=== PATIENT | male | born 1940 | race Caucasian/White ===

== ENCOUNTER → 2023-07-03 14:02 | Outpatient (REF) | payer MEDICARE, BC, SELFPAY | LOC: DHCBC HW 14:02 | PROVIDERS: ATTENDING PHYSICIAN Internal Medicine Cardiovascular Disease; FAMILY PHYSICIAN Nurse Practitioner Family | DX: I42.9 Cardiomyopathy, unspecified (principal) | CPT/HCPCS: 93306 ==

== ENCOUNTER → 2023-07-23 08:45 | Outpatient (REF) | payer MEDICARE, BC, SELFPAY ==
[2023-07-23 12:55] LABS: ALT (SGPT) 33 U/L (0-50); AST (SGOT) 47 U/L (17-59); Albumin 3.5 g/dl (3.5-5.0); Alkaline Phosphatase 147 U/L (38-126); Blood Urea Nitrogen 26 mg/dl (9-20); Carbon Dioxide 29 mmol/L (22-30); Chloride 104 mmol/L (98-107); Glucose 83 mg/dl (70-99); HDL Cholesterol 31 mg/dl; Iron 61 ug/dl (49-181); LDL Cholesterol, Calculated 35 mg/dl; Potassium 3.6 mmol/L (3.5-5.1); Sodium 138 mmol/L (135-145); Total Bilirubin 1.4 mg/dl (0.2-1.3); Total Cholesterol 76 mg/dl (50-199); Total Protein 6.1 g/dl (6.3-8.2); Triglyceride 54 mg/dl (10-149); Uric Acid 7.7 mg/dl (3.5-8.5); Very Low Density Lipoprotein 10 mg/dl (0-30); eGFR 49.25
[2023-07-23 13:18] LABS: TSH Reflex To Free T4 3.36 uIU/ml (0.47-4.68)
[2023-07-23 13:35] LABS: % Basophils 0.6 % (0-2); % Eosinophils 5.1 % (0-6); % Immature Granulocytes 0.4 % (0-0.5); % Lymphocytes 11.5 % (20.5-51.1); % Monocytes 8.8 % (1.7-9.3); % Neutrophils 73.6 % (42.2-75.2); Absolute Eosinophils 0.2 10^3/uL (0-0.7); Absolute Lymphocytes 0.5 10^3/uL (1.2-3.4); Absolute Monocytes 0.4 10^3/uL (0.1-0.6); Absolute Neutrophils 3.4 10^3/uL (1.4-6.5); Hematocrit 30.6 % (39.0-52.0); Hemoglobin 10.1 g/dL (13.0-18.0); Mean Corpuscular Volume 96.8 fL (80.0-94.0); Mean Platelet Volume 11.4 fL (7.4-10.4); Nucleated Red Blood Cells % 0 % (-); Platelet Count 78 10^3/uL (130-400); Red Blood Cell Count 3.16 10^6/uL (4.70-6.10); Red Cell Dist. Width 14.3 % (11.5-14.5); White Blood Cell Count 4.7 10^3/uL (4.8-10.8)
== END ==
LOC: HWLAB 08:45
PROVIDERS: ATTENDING PHYSICIAN Nurse Practitioner Family
DX: M10.9 Gout, unspecified (principal); I10 Essential (primary) hypertension; K22.70 Barrett's esophagus without dysplasia; K90.0 Celiac disease; E04.2 Nontoxic multinodular goiter; E78.2 Mixed hyperlipidemia; D69.6 Thrombocytopenia, unspecified; Z13.31 Encounter for screening for depression; K59.00 Constipation, unspecified; R91.1 Solitary pulmonary nodule; N18.32 Chronic kidney disease, stage 3b
CPT/HCPCS: 36415; 80053; 80061; 82728; 83540; 84443; 84550; 85025

== ENCOUNTER → 2023-09-28 09:06 | Outpatient (REF) | payer MEDICARE, BC, SELFPAY ==
[2023-09-28 12:52] LABS: Urine Albumin Trace (Neg - Trace); Urine Bilirubin Negative (Negative); Urine Character Clear (Clear); Urine Color Yellow; Urine Glucose Negative (Negative); Urine Ketone Negative (Negative); Urine Leukocyte Negative (Negative); Urine Nitrite Negative (Negative); Urine Occult Blood 1+ (Negative); Urine Urobilinogen Negative (Neg - 1+)
[2023-09-28 13:02] LABS: % Basophils 0.4 % (0-2); % Eosinophils 5.2 % (0-6); % Lymphocytes 13.8 % (20.5-51.1); % Monocytes 7.5 % (1.7-9.3); % Neutrophils 73.1 % (42.2-75.2); Absolute Eosinophils 0.3 10^3/uL (0-0.7); Absolute Lymphocytes 0.7 10^3/uL (1.2-3.4); Absolute Monocytes 0.4 10^3/uL (0.1-0.6); Absolute Neutrophils 3.5 10^3/uL (1.4-6.5); Hematocrit 33.3 % (39.0-52.0); Mean Corpuscular Hgb 31.4 pg (27.0-31.0); Mean Corpuscular Volume 95.1 fL (80.0-94.0); Mean Platelet Volume 11.5 fL (7.4-10.4); Nucleated Red Blood Cells % 0 % (-); Platelet Count 55 10^3/uL (130-400); Red Cell Dist. Width 14.3 % (11.5-14.5); White Blood Cell Count 4.8 10^3/uL (4.8-10.8)
[2023-09-28 13:05] LABS: Albumin 3.7 g/dl (3.5-5.0); Blood Urea Nitrogen 25 mg/dl (9-20); Calcium 9.4 mg/dl (8.4-10.2); Carbon Dioxide 30 mmol/L (22-30); Chloride 104 mmol/L (98-107); Glucose 86 mg/dl (70-99); Iron 77 ug/dl (49-181); Phosphorus 2.7 mg/dl (2.5-4.5); Potassium 3.7 mmol/L (3.5-5.1); Sodium 141 mmol/L (135-145); eGFR 59.26
[2023-09-28 13:14] LABS: Percent Saturation 25 % (20-50); Total Iron Binding Capacity 304 ug/dl (261-462)
[2023-09-28 13:19] LABS: Complement C3 93 mg/dl (88-165)
[2023-09-28 13:33] LABS: Urine Urothelial Cell 0-2 /LPF (FEW)
[2023-09-28 13:34] LABS: Urine White Cell 0-2 /HPF (0-5)
== END ==
LOC: HWLAB 09:06
PROVIDERS: ATTENDING PHYSICIAN Internal Medicine; FAMILY PHYSICIAN Nurse Practitioner Family
DX: N17.9 Acute kidney failure, unspecified (principal); D64.9 Anemia, unspecified
CPT/HCPCS: 36415; 80069; 81003; 81015; 82728; 83516; 83540; 83550; 85025; 86038; 86160

== ENCOUNTER → 2023-10-19 13:08 | Outpatient (REF) | payer MEDICARE, BC, SELFPAY ==
[2023-10-19 17:07] LABS: Albumin 3.6 g/dl (3.5-5.0); Blood Urea Nitrogen 29 mg/dl (9-20); Calcium 9.4 mg/dl (8.4-10.2); Carbon Dioxide 31 mmol/L (22-30); Chloride 104 mmol/L (98-107); Glucose 151 mg/dl (70-99); Potassium 3.5 mmol/L (3.5-5.1); Sodium 142 mmol/L (135-145); eGFR 59.26
[2023-10-19 17:23] LABS: Vitamin D, 25-OH*** 58.2 ng/mL (30-80)
== END ==
LOC: HWLAB 13:08
PROVIDERS: ATTENDING PHYSICIAN Internal Medicine; FAMILY PHYSICIAN Nurse Practitioner Family
DX: N18.32 Chronic kidney disease, stage 3b (principal); E83.52 Hypercalcemia
CPT/HCPCS: 36415; 80069; 82306; 83970

== ENCOUNTER → 2023-11-03 15:32 | Outpatient (REF) | payer MEDICARE, BC, SELFPAY | LOC: HWRAD 15:32 | PROVIDERS: ATTENDING PHYSICIAN Internal Medicine | DX: M79.604 Pain in right leg (principal); W19.XXXA Unspecified fall, initial encounter | CPT/HCPCS: 73552 ==

== ENCOUNTER → 2023-11-16 15:15 | Outpatient (REF) | payer MEDICARE, BC, SELFPAY | LOC: HWRAD 15:15 | PROVIDERS: ATTENDING PHYSICIAN Nurse Practitioner Family | DX: M79.604 Pain in right leg (principal) | CPT/HCPCS: 73502; 73552; 73564; 73590; 73610 ==

== ENCOUNTER → 2024-01-29 09:20 | Outpatient (REF) | payer MEDICARE, BC, SELFPAY ==
[2024-01-29 12:26] LABS: % Basophils 0.8 % (0-2); % Eosinophils 5.3 % (0-6); % Immature Granulocytes 0.3 % (0-0.5); % Lymphocytes 13.8 % (20.5-51.1); % Neutrophils 71.8 % (42.2-75.2); Absolute Eosinophils 0.2 10^3/uL (0-0.7); Absolute Lymphocytes 0.6 10^3/uL (1.2-3.4); Absolute Monocytes 0.3 10^3/uL (0.1-0.6); Absolute Neutrophils 2.9 10^3/uL (1.4-6.5); Hematocrit 31.9 % (39.0-52.0); Hemoglobin 10.5 g/dL (13.0-18.0); Mean Corp Hgb Conc. 32.9 g/dL (33.0-37.0); Mean Corpuscular Hgb 30.8 pg (27.0-31.0); Mean Corpuscular Volume 93.5 fL (80.0-94.0); Mean Platelet Volume 11.7 fL (7.4-10.4); Nucleated Red Blood Cells % 0 % (-); Platelet Count 61 10^3/uL (130-400); Red Blood Cell Count 3.41 10^6/uL (4.70-6.10); Red Cell Dist. Width 14.5 % (11.5-14.5)
[2024-01-29 12:33] LABS: ALT (SGPT) 41 U/L (0-50); AST (SGOT) 55 U/L (17-59); Albumin 3.6 g/dl (3.5-5.0); Alkaline Phosphatase 129 U/L (38-126); Blood Urea Nitrogen 36 mg/dl (9-20); Calcium 9.2 mg/dl (8.4-10.2); Carbon Dioxide 25 mmol/L (22-30); Chloride 105 mmol/L (98-107); Glucose 93 mg/dl (70-99); HDL Cholesterol 32 mg/dl; Iron 59 ug/dl (49-181); LDL Cholesterol, Calculated 35 mg/dl; Potassium 4.1 mmol/L (3.5-5.1); Sodium 144 mmol/L (135-145); Total Cholesterol 77 mg/dl (50-199); Total Protein 6.1 g/dl (6.3-8.2); Triglyceride 54 mg/dl (10-149); Very Low Density Lipoprotein 10 mg/dl (0-30); eGFR 45.34
[2024-01-29 12:42] LABS: Percent Saturation 21 % (20-50); Total Iron Binding Capacity 278 ug/dl (261-462)
[2024-01-29 13:07] LABS: TSH Reflex To Free T4 2.54 uIU/ml (0.47-4.68)
[2024-01-29 16:08] LABS: Microalbumin, Random Urine > 57.0 mg/dl (0.6-1.7)
[2024-01-31 02:28] LABS: Endomysial IgA Antibody Titer <1:10 (<1:10)
== END ==
LOC: HWLAB 09:20
PROVIDERS: ATTENDING PHYSICIAN Nurse Practitioner; FAMILY PHYSICIAN Nurse Practitioner Family
DX: M79.604 Pain in right leg (principal); Z13.31 Encounter for screening for depression; I10 Essential (primary) hypertension; M10.9 Gout, unspecified; K22.70 Barrett's esophagus without dysplasia; K90.0 Celiac disease; E04.2 Nontoxic multinodular goiter; E78.2 Mixed hyperlipidemia; D69.6 Thrombocytopenia, unspecified; K59.00 Constipation, unspecified; I50.9 Heart failure, unspecified; C43.9 Malignant melanoma of skin, unspecified; I48.91 Unspecified atrial fibrillation; M54.50 Low back pain, unspecified; D50.9 Iron deficiency anemia, unspecified; Z91.81 History of falling; I71.40 Abdominal aortic aneurysm, without rupture, unspecified; R91.1 Solitary pulmonary nodule; I71.20 Thoracic aortic aneurysm, without rupture, unspecified; N18.32 Chronic kidney disease, stage 3b; M25.561 Pain in right knee; M25.562 Pain in left knee
CPT/HCPCS: 36415; 80053; 80061; 82043; 82570; 82728; 82784; 83516; 83540; 83550; 84443; 85025; 86231

== ENCOUNTER → 2024-02-25 09:54 | Outpatient (REF) | payer MEDICARE, BC, SELFPAY ==
[2024-02-25 12:31] LABS: Direct Bilirubin 0.3 mg/dl (0.0-0.4); Total Bilirubin 1.2 mg/dl (0.2-1.3)
[2024-02-25 12:34] LABS: % Basophils 0.6 % (0-2); % Eosinophils 5.3 % (0-6); % Immature Granulocytes 0.4 % (0-0.5); % Lymphocytes 12.5 % (20.5-51.1); % Monocytes 8.7 % (1.7-9.3); % Neutrophils 72.5 % (42.2-75.2); Absolute Eosinophils 0.3 10^3/uL (0-0.7); Absolute Lymphocytes 0.7 10^3/uL (1.2-3.4); Absolute Monocytes 0.5 10^3/uL (0.1-0.6); Absolute Neutrophils 3.9 10^3/uL (1.4-6.5); Hematocrit 33.5 % (39.0-52.0); Hemoglobin 11.5 g/dL (13.0-18.0); Mean Corp Hgb Conc. 34.3 g/dL (33.0-37.0); Mean Corpuscular Hgb 32.2 pg (27.0-31.0); Mean Corpuscular Volume 93.8 fL (80.0-94.0); Nucleated Red Blood Cells % 0 % (-); Platelet Count 67 10^3/uL (130-400); Red Blood Cell Count 3.57 10^6/uL (4.70-6.10); Red Cell Dist. Width 14.1 % (11.5-14.5); White Blood Cell Count 5.4 10^3/uL (4.8-10.8)
== END ==
LOC: HWLAB 09:54
PROVIDERS: ATTENDING PHYSICIAN Nurse Practitioner Family
DX: E80.6 Other disorders of bilirubin metabolism (principal); D69.6 Thrombocytopenia, unspecified
CPT/HCPCS: 36415; 82247; 82248; 85025

== ENCOUNTER → 2024-03-11 10:17 | Outpatient (REF) | payer MEDICARE, BC, SELFPAY ==
[2024-03-11 12:29] LABS: Urine Protein 70 mg/dl (0-12)
[2024-03-11 12:30] LABS: % Eosinophils 6.5 % (0-6); % Immature Granulocytes 0.2 % (0-0.5); % Monocytes 8.1 % (1.7-9.3); % Neutrophils 71.2 % (42.2-75.2); Absolute Basophils 0.1 10^3/uL (0-0.2); Absolute Eosinophils 0.3 10^3/uL (0-0.7); Absolute Lymphocytes 0.7 10^3/uL (1.2-3.4); Absolute Monocytes 0.4 10^3/uL (0.1-0.6); Absolute Neutrophils 3.6 10^3/uL (1.4-6.5); Hematocrit 33.7 % (39.0-52.0); Hemoglobin 11.2 g/dL (13.0-18.0); Mean Corp Hgb Conc. 33.2 g/dL (33.0-37.0); Mean Corpuscular Hgb 31.2 pg (27.0-31.0); Mean Corpuscular Volume 93.9 fL (80.0-94.0); Mean Platelet Volume 11.4 fL (7.4-10.4); Nucleated Red Blood Cells % 0 % (-); Platelet Count 62 10^3/uL (130-400); Red Blood Cell Count 3.59 10^6/uL (4.70-6.10); Red Cell Dist. Width 14.3 % (11.5-14.5); White Blood Cell Count 5.1 10^3/uL (4.8-10.8)
[2024-03-11 12:38] LABS: Albumin 3.8 g/dl (3.5-5.0); Blood Urea Nitrogen 35 mg/dl (9-20); Calcium 9.3 mg/dl (8.4-10.2); Carbon Dioxide 29 mmol/L (22-30); Chloride 104 mmol/L (98-107); Glucose 78 mg/dl (70-99); Sodium 143 mmol/L (135-145); eGFR 45.34
== END ==
LOC: HWLAB 10:17
PROVIDERS: ATTENDING PHYSICIAN Internal Medicine; FAMILY PHYSICIAN Nurse Practitioner Family
DX: I10 Essential (primary) hypertension (principal); N18.32 Chronic kidney disease, stage 3b; D64.9 Anemia, unspecified; I50.32 Chronic diastolic (congestive) heart failure
CPT/HCPCS: 36415; 80069; 82570; 84156; 85025

== ENCOUNTER → 2024-03-15 09:09 | Outpatient (REF) | payer MEDICARE, BC, SELFPAY ==
[2024-03-15 09:36] VITALS: BP 152/79; BP_SYST 58
[2024-03-15 09:56] LABS: INR 2.69; PT 28.5 Sec (11.4-14.6)
[2024-03-15 10:03] LABS: % Basophils 0.5 % (0-2); % Eosinophils 5.5 % (0-6); % Immature Granulocytes 0.2 % (0-0.5); % Lymphocytes 11.6 % (20.5-51.1); % Monocytes 8.1 % (1.7-9.3); % Neutrophils 74.1 % (42.2-75.2); Absolute Eosinophils 0.3 10^3/uL (0-0.7); Absolute Lymphocytes 0.7 10^3/uL (1.2-3.4); Absolute Monocytes 0.5 10^3/uL (0.1-0.6); Absolute Neutrophils 4.2 10^3/uL (1.4-6.5); Hematocrit 32.8 % (39.0-52.0); Mean Corp Hgb Conc. 33.5 g/dL (33.0-37.0); Mean Corpuscular Hgb 30.6 pg (27.0-31.0); Mean Corpuscular Volume 91.4 fL (80.0-94.0); Mean Platelet Volume 11.5 fL (7.4-10.4); Nucleated Red Blood Cells % 0 % (-); Platelet Count 69 10^3/uL (130-400); Red Blood Cell Count 3.59 10^6/uL (4.70-6.10); Red Cell Dist. Width 14.3 % (11.5-14.5); White Blood Cell Count 5.7 10^3/uL (4.8-10.8)
[2024-03-15] MEDS: ATIVAN 0.5 MG IV (10:42)
[2024-03-15] MEDS: NSS (PRESERVATIVE FREE) 0.25 ML IV (10:42)
[2024-03-15 11:35] VITALS: BP 157/80
[2024-03-15 11:41] VITALS: BP 157/80; BP_SYST 68
[2024-03-15 11:45] VITALS: BP 126/69
[2024-03-15 11:50] VITALS: BP 149/72
[2024-03-15 11:55] VITALS: BP 146/89
== END ==
LOC: RADI 09:09
PROVIDERS: ATTENDING PHYSICIAN Nurse Practitioner Primary Care; FAMILY PHYSICIAN Nurse Practitioner Family
DX: D69.6 Thrombocytopenia, unspecified (principal); D64.9 Anemia, unspecified
CPT/HCPCS: 88305; 88311; 88312; 36415; 38222; 77012; 85025; 85610; 88313

== ENCOUNTER 2024-03-25 06:37 | Emergency (ER) | payer MEDICARE, BC, SELFPAY ==
[2024-03-25 06:40] VITALS: BP 157/80; BMI 26.2
[2024-03-25 07:00] VITALS: BP 157/73
--- NOTE | 2024-03-25 07:25 | ED.GENMED ---
History of Present Illness
General
Chief Complaint: Wound Check/Suture Removal
Source: patient and spouse
Time Seen by Provider: 03/25/24 07:04
History of Present Illness
History of Present Illness:
83-year-old male with past medical history of atrial fibrillation, CHF, hypertension, hyperlipidemia, previous AAA status postrepair, chronic kidney disease presenting to the ER for evaluation after he is about 10 days post bone marrow biopsy, awoke
earlier this morning stating he felt wet and thought he had urinated himself but noticed a large pool of blood on his bed and continuous oozing from the biopsy site. Patient states that 2 days following the biopsy he would have dried blood on his
bandage when checking in for the last few days he has not had any drainage on his bandages. Patient takes Coumadin daily for his atrial fibrillation and states last INR a few days ago was 2.6. Denies any fevers, chest pain, shortness of breath,
exertional dyspnea, fatigue or weakness or any other symptoms. He does state that he has mild pain/discomfort around the biopsy site since his procedure.
Past History
Past History
ED Past Medical History: Arrthythmia, CHF, HTN, Hypercholesterolemia, Renal failure, Other (celiac, barretts esophagus) and Other (AAA)
ED Past Surgical History: Orthopedic and Other
Social History
Tobacco: Non-smoker
Alcohol: None
Drug: None
Personal:
Living: with family
Review of Systems
Review of Systems
All Other Systems: ROS reviewed and negative except as documented in HPI and ROS
Phy Exam
Physical Exam
Physical Exam:
GENERAL: Alert , in no apparent distress
EYE: conjunctiva clear
NECK: Supple
ENT: mmm.
CARDIAC: Regular rate and rhythm
LUNGS: Clear breath sounds bilaterally, no acute respiratory distress, no wheezes/rales/rhonchi
NEUROLOGICAL: Alert and oriented
SKIN: Warm and dry, biopsy site noted at the lumbosacral region, midline, dressing overlying saturated with blood, dressing removed and continuous oozing noted from the biopsy site. Inferior to the biopsy site is a small hematoma. No surrounding
erythema, no purulence
MUSCULOSKELETAL: well perfused.
PSYCH: Normal and appropriate interaction.
Scores
Heart Failure Risk
Heart Failure Risk Score: Not Applicable
Heart Score for Chest Pain Patients
STEMI patient?: Not applicable
Withdrawal Assessment of Alcohol
Withdrawal Assessment Completed?: Not applicable
Course
Orders/Labs/Results
Orders:
Orders
03/25/24 07:15
Type+Screen Urgent
Basic Metabolic Panel Urgent
Complete Blood Count/With Diff Urgent
PTT Urgent
Prothrombin Time Urgent
03/25/24 08:06
ABO2 Urgent
BBK Wristband Number:
Associate notified that ABO2 has been ordered: [id number]
Date: 03/25/24
Time: 07:33
Manager Etl ID: [id number]
Abnormal Lab Results
03/25/24
07:15
RBC 3.55 L 10^6/uL
(4.70-6.10)
Hgb 11.2 L g/dL
(13.0-18.0)
Hct 34.1 L %
(39.0-52.0)
MCV 96.1 H fL
(80.0-94.0)
MCH 31.5 H pg
(27.0-31.0)
MCHC 32.8 L g/dL
(33.0-37.0)
RDW 14.6 H %
(11.5-14.5)
Plt Count 78 L 10^3/uL
(130-400)
MPV 11.3 H fL
(7.4-10.4)
Absolute Lymphs (auto) 0.6 L 10^3/uL
(1.2-3.4)
Neutrophils % 75.9 H %
(42.2-75.2)
Lymphocytes % 9.8 L %
(20.5-51.1)
PT 29.0 H Sec
(11.4-14.6)
APTT 49.4 H Sec
(23.4-35.0)
Carbon Dioxide 31 H mmol/L
(22-30)
BUN 34 H mg/dl
(9-20)
Creatinine 1.5 H mg/dL
(0.7-1.3)
Glucose 100 H mg/dl
(70-99)
03/25/24 07:15
03/25/24 07:15
Vital Signs
Initial and Last Documented VS:
Initial Vital Signs
Temp Pulse Resp BP Pulse Ox
97.6 F 63 16 157/80 96
03/25/24 06:40 03/25/24 06:40 03/25/24 06:40 03/25/24 06:40 03/25/24 06:40
Last Documented Vital Signs
Temp Pulse Resp BP Pulse Ox
97.6 F 74 15 148/56 95
03/25/24 06:40 03/25/24 08:30 03/25/24 08:30 03/25/24 08:00 03/25/24 08:30
MDM/Problems Addressed
Differential Diagnosis Includes:
Postprocedural bleeding, hematoma, seroma, no symptoms to suggest infectious etiology, supratherapeutic INR, anemia, thrombocytopenia
MDM/Problems Addressed:
83-year-old male presenting to the ER for evaluation of bleeding through his dressings from bone marrow biopsy done little over 1 week ago. Patient is on Coumadin for his chronic medical conditions. Last INR 2.6 just a few days ago. No other
physical concerns. Patient's old dressing was removed. I placed Gelfoam with a nonadherent gauze pad over top and 4 x 4's to create a pressure dressing. Ice pack applied to the area and patient applying direct pressure. Will check labs including
INR. Will recheck wound once labs resulted to ensure no further bleeding/oozing. Disposition pending.
Chronic conditions affecting care: Other (Anticoagulated secondary to atrial fibrillation)
*Pulse Oximetry
Patient hypoxic: no
*Critical Care Note
Total Time (30-74mins, 75-104mins- exclusive of procedures): Not Applicable
Data Reviewed
Review of Other/Old Records Reveals: Labs and Records
Source: patient, records and spouse
Patient Management
Social determinants of health affecting care: Living situation and Strong social support
Escalation/DeEscalation of care consider admission/obs:
Patient's lab work reassuring with a hemoglobin of 11.2 and platelets actually increased to 78 today. INR 2.7. Known mild chronic kidney disease. On reevaluation patient's dressing remains dry and without any further evidence for bleeding.
Stable for discharge home. Family advised on wound care. They are aware of return precautions. Follow-up as they have scheduled
ED Attending Note
-
Portions of this chart may have been created with voice recognition software.� Occasional wrong word or��sound alike� substitutions may have occurred due to the inherent limitations of voice recognition software.
Discharge Plan
Departure
Patient Disposition: Home (Routine Discharge)
Date of Disposition: 03/25/24
Time of Disposition: 08:27
Patient with high blood pressure during this ER visit?: Yes
Discharge Problem:
Hemorrhage postprocedure, Thrombocytopenia
Instructions: Wound Care (DC)
Prescriptions:
No Action
metoprolol tartrate 100 MG tablet
50 mg PO BID
pantoprazole 40 MG tablet,delayed release (DR/EC)
40 mg PO DAILY
warfarin [Jantoven] 5 MG tablet
3 mg PO DAILY
Rx Instructions:
use as directed
docosahexaenoic acid-epa 1 CAP capsule
1 cap PO DAILY
calcium carbonate-vitamin D3 1 EACH tablet
1 ea PO BID
aspirin 81 MG tablet,chewable
81 mg PO QPM
High Potency Probiotic 1 CAP capsule
1 cap PO DAILY
multivitamin with folic acid [Tab-A-Wiley] 1 TABLET tablet
1 tab PO DAILY
vitamin B complex Tablet
1 tab PO QPM
magnesium 250 mg Tablet
250 mg PO QPM
atorvastatin [Lipitor] 40 mg Tablet
40 mg PO DAILY
cilostazol 100 mg Tablet
100 mg PO BID
bumetanide [Bumex] 2 mg Tablet
2 mg PO DAILY
amlodipine [Norvasc] 2.5 mg Tablet
2.5 mg PO DAILY
folic acid 1 mg Tablet
1 mg PO DAILY
solifenacin [Vesicare] 5 mg Tablet
5 mg PO DAILY
potassium chloride 20 mEq Tablet Extended Release
20 meq PO DAILY
polyethylene glycol 3350 [Miralax] 17 gram Powder In Packet
17 g PO DAILY PRN (Reason: constipation)
docusate sodium [Colace] 100 mg Capsule
100 mg PO DAILY PRN (Reason: constipation)
Referrals:
Markie Contreras CRNP [Family Provider] -
Interventions
Interventions:
*Risk Screen - Suicide Last Done: 03/25/24 06:40
*General Assessment Last Done: 03/25/24 06:40
*Neglect/Abuse Screening Last Done: 03/25/24 06:40
ED- Fall Risk Assessment Last Done: 03/25/24 06:55
*ED COVID-19 Vaccine History Last Done: 03/25/24 06:49
*Nursing Disposition Last Done: 03/25/24 08:40
ED-Skin Assessment Last Done: 03/25/24 06:49
Discharge Date and Time
Discharge Date/Time: 03/25/24 08:41
Print Language: CAMEROONIAN
--- NOTE | 2024-03-25 07:29 | EDRN ---
Mo MEJIA was at the pts bedside assessing the pts sacral/buttock area, the provider placed a pressure dressing on the pts sacral area, ice was put in place under the sacrum and the pt is laying on his left side and slightly tilted back,
the pt states that he is comfortable, VS WNL, labs drawn and sent, will continue to monitor the pt closely
[2024-03-25 07:50] LABS: INR 2.74
[2024-03-25 07:51] LABS: APTT 49.4 Sec (23.4-35.0)
[2024-03-25 07:54] LABS: Blood Urea Nitrogen 34 mg/dl (9-20); Calcium 9.5 mg/dl (8.4-10.2); Carbon Dioxide 31 mmol/L (22-30); Chloride 102 mmol/L (98-107); Estimated Creatinine Clearance 40 ml/min; Glucose 100 mg/dl (70-99); Potassium 3.8 mmol/L (3.5-5.1); Sodium 143 mmol/L (135-145); eGFR 45.34
[2024-03-25 08:00] VITALS: BP 148/56
[2024-03-25 08:30] LABS: % Basophils 0.5 % (0-2); % Eosinophils 5.2 % (0-6); % Immature Granulocytes 0.5 % (0-0.5); % Lymphocytes 9.8 % (20.5-51.1); % Monocytes 8.1 % (1.7-9.3); % Neutrophils 75.9 % (42.2-75.2); Absolute Eosinophils 0.3 10^3/uL (0-0.7); Absolute Lymphocytes 0.6 10^3/uL (1.2-3.4); Absolute Monocytes 0.5 10^3/uL (0.1-0.6); Absolute Neutrophils 4.7 10^3/uL (1.4-6.5); Hematocrit 34.1 % (39.0-52.0); Hemoglobin 11.2 g/dL (13.0-18.0); Mean Corp Hgb Conc. 32.8 g/dL (33.0-37.0); Mean Corpuscular Hgb 31.5 pg (27.0-31.0); Mean Corpuscular Volume 96.1 fL (80.0-94.0); Mean Platelet Volume 11.3 fL (7.4-10.4); Nucleated Red Blood Cells % 0 % (-); Platelet Count 78 10^3/uL (130-400); Red Blood Cell Count 3.55 10^6/uL (4.70-6.10); Red Cell Dist. Width 14.6 % (11.5-14.5); White Blood Cell Count 6.2 10^3/uL (4.8-10.8)
== END 2024-03-25 08:41 | disposition home or self-care (01) ==
LOC: EMR 06:37
PROVIDERS: Physician Assistant Medical; EMERGENCY PHYSICIAN Emergency Medicine; FAMILY PHYSICIAN Nurse Practitioner Family
DX: L76.22 Postprocedural hemorrhage of skin and subcutaneous tissue following other procedure (principal); D69.6 Thrombocytopenia, unspecified; I13.0 Hypertensive heart and chronic kidney disease with heart failure and stage 1 through stage 4 chronic kidney disease, or unspecified chronic kidney disease; I50.9 Heart failure, unspecified; N18.9 Chronic kidney disease, unspecified; E78.00 Pure hypercholesterolemia, unspecified; Z79.01 Long term (current) use of anticoagulants; Z86.79 Personal history of other diseases of the circulatory system; Z87.19 Personal history of other diseases of the digestive system
CPT/HCPCS: 99283; 80048; 85025; 85610; 85730; 86850; 86900; 86901

== ENCOUNTER 2024-03-25 15:08 | Emergency (ER) | payer MEDICARE, BC, SELFPAY ==
[2024-03-25 15:10] VITALS: BP 146/78
[2024-03-25 15:11] VITALS: BP 146/78; BMI 26.1
--- NOTE | 2024-03-25 15:28 | ED.GENMED ---
History of Present Illness
General
Chief Complaint: Skin Problem
Source: patient
Time Seen by Provider: 03/25/24 15:28
History of Present Illness
History of Present Illness:
83-year-old male seen in this emergency department earlier today for bleeding from a bone marrow biopsy site that he had done about 10 days ago, states that bleeding had subsided but about an hour or so after getting home the bleeding started again.
They were able to do a dressing change and got the bleeding to stop again but then about another hour or so after the initial bleeding episode the bleeding started again. Patient is without any other symptoms and states he otherwise continues to
feel well.
Past History
Past History
ED Past Medical History: Arrthythmia, CHF, HTN, Hypercholesterolemia, Renal failure, Other (celiac, barretts esophagus) and Other (AAA)
ED Past Surgical History: Orthopedic and Other
Social History
Tobacco: Non-smoker
Alcohol: None
Drug: None
Personal:
Living: with family
Review of Systems
Review of Systems
All Other Systems: ROS reviewed and negative except as documented in HPI and ROS
Phy Exam
Physical Exam
Physical Exam:
GENERAL: Alert , in no apparent distress
EYE: conjunctiva clear
Head: Normocephalic atraumatic
NECK: Supple,
ENT: mmm.
LUNGS: no acute respiratory distress
NEUROLOGICAL: Alert and oriented
SKIN: Warm and dry, dressing remains in place however it is saturated again with blood. once removed there was a continued slight ooze albeit much more mild compared to earlier this morning
MUSCULOSKELETAL: well perfused.
PSYCH: Normal and appropriate interaction.
Scores
Heart Failure Risk
Heart Failure Risk Score: Not Applicable
Heart Score for Chest Pain Patients
STEMI patient?: Not applicable
Withdrawal Assessment of Alcohol
Withdrawal Assessment Completed?: Not applicable
Course
Vital Signs
Initial and Last Documented VS:
Initial Vital Signs
Pulse Resp BP Pulse Ox
78 10 146/78 98
03/25/24 15:10 03/25/24 15:10 03/25/24 15:10 03/25/24 15:10
Last Documented Vital Signs
Pulse Resp BP Pulse Ox
67 16 123/49 92
03/25/24 17:23 03/25/24 17:23 03/25/24 17:23 03/25/24 17:23
MDM/Problems Addressed
MDM/Problems Addressed:
83-year-old male presenting back to the emergency department after being seen earlier this morning for bleeding postoperative wound, bleeding initially stabilized with Gelfoam and dressing. Unfortunately bleeding reoccurred. I placed a
[id number] stitch and a simple interrupted stitch over the biopsy site and achieved good hemostasis. Lidocaine with epinephrine was also instilled. Gelfoam was placed over top of this with a sterile dressing. Again applied large ice pack to
the affected area and had patient put continued pressure. Will continue to monitor in the ER for any signs of further bleeding with anticipated discharge home
*Pulse Oximetry
Patient hypoxic: no
*Critical Care Note
Total Time (30-74mins, 75-104mins- exclusive of procedures): Not Applicable
Data Reviewed
Review of Other/Old Records Reveals: Labs and Records
Patient Management
Social determinants of health affecting care: Living situation and Strong social support
Escalation/DeEscalation of care consider admission/obs:
Patient observed in ED for extended period without any further bleeding. He remains stable and safe for d/c home. Advised sutures be removed when he follows up with hematology next week as he already has scheduled. Aware of return precautions to the
ER
ED Attending Note
-
Portions of this chart may have been created with voice recognition software.� Occasional wrong word or��sound alike� substitutions may have occurred due to the inherent limitations of voice recognition software.
Discharge Plan
Departure
Patient Disposition: Home (Routine Discharge)
Patient with high blood pressure during this ER visit?: No
Discharge Problem:
Post-operative hemorrhage
Instructions: Wound Care (DC)
Prescriptions:
No Action
metoprolol tartrate 100 MG tablet
50 mg PO BID
pantoprazole 40 MG tablet,delayed release (DR/EC)
40 mg PO DAILY
warfarin [Jantoven] 5 MG tablet
3 mg PO DAILY
Rx Instructions:
use as directed
docosahexaenoic acid-epa 1 CAP capsule
1 cap PO DAILY
calcium carbonate-vitamin D3 1 EACH tablet
1 ea PO BID
aspirin 81 MG tablet,chewable
81 mg PO QPM
High Potency Probiotic 1 CAP capsule
1 cap PO DAILY
multivitamin with folic acid [Tab-A-Wiley] 1 TABLET tablet
1 tab PO DAILY
vitamin B complex Tablet
1 tab PO QPM
magnesium 250 mg Tablet
250 mg PO QPM
atorvastatin [Lipitor] 40 mg Tablet
40 mg PO DAILY
cilostazol 100 mg Tablet
100 mg PO BID
bumetanide [Bumex] 2 mg Tablet
2 mg PO DAILY
amlodipine [Norvasc] 2.5 mg Tablet
2.5 mg PO DAILY
folic acid 1 mg Tablet
1 mg PO DAILY
solifenacin [Vesicare] 5 mg Tablet
5 mg PO DAILY
potassium chloride 20 mEq Tablet Extended Release
20 meq PO DAILY
polyethylene glycol 3350 [Miralax] 17 gram Powder In Packet
17 g PO DAILY PRN (Reason: constipation)
docusate sodium [Colace] 100 mg Capsule
100 mg PO DAILY PRN (Reason: constipation)
Interventions
Interventions:
*Risk Screen - Suicide Last Done: 03/25/24 15:11
*General Assessment Last Done: 03/25/24 15:11
*Neglect/Abuse Screening Last Done: 03/25/24 15:11
ED- Fall Risk Assessment Last Done: 03/25/24 15:11
*ED COVID-19 Vaccine History Last Done: 03/25/24 15:11
*Nursing Disposition Last Done: 03/25/24 17:23
ED-Skin Assessment Last Done: 03/25/24 15:15
Discharge Date and Time
Discharge Date/Time: 03/25/24 17:29
Print Language: VIETNAMESE
[2024-03-25 17:23] VITALS: BP 123/49
== END 2024-03-25 17:29 | disposition home or self-care (01) ==
LOC: EMR 15:08
PROVIDERS: EMERGENCY PHYSICIAN Emergency Medicine; FAMILY PHYSICIAN Nurse Practitioner Family
DX: L76.22 Postprocedural hemorrhage of skin and subcutaneous tissue following other procedure (principal); I13.0 Hypertensive heart and chronic kidney disease with heart failure and stage 1 through stage 4 chronic kidney disease, or unspecified chronic kidney disease; I50.9 Heart failure, unspecified; N18.9 Chronic kidney disease, unspecified; E78.00 Pure hypercholesterolemia, unspecified; Z87.19 Personal history of other diseases of the digestive system; K90.0 Celiac disease
CPT/HCPCS: 99282

== ENCOUNTER → 2024-03-30 13:53 | Outpatient (REF) | payer MEDICARE, BC, SELFPAY ==
[2024-03-30 15:48] LABS: % Basophils 0.5 % (0-2); % Eosinophils 4.9 % (0-6); % Immature Granulocytes 0.2 % (0-0.5); % Monocytes 7.2 % (1.7-9.3); % Neutrophils 76.2 % (42.2-75.2); Absolute Eosinophils 0.3 10^3/uL (0-0.7); Absolute Lymphocytes 0.6 10^3/uL (1.2-3.4); Absolute Monocytes 0.4 10^3/uL (0.1-0.6); Absolute Neutrophils 4.4 10^3/uL (1.4-6.5); Hematocrit 31.5 % (39.0-52.0); Mean Corp Hgb Conc. 31.7 g/dL (33.0-37.0); Mean Corpuscular Hgb 30.9 pg (27.0-31.0); Mean Corpuscular Volume 97.2 fL (80.0-94.0); Mean Platelet Volume 10.7 fL (7.4-10.4); Nucleated Red Blood Cells % 0 % (-); Platelet Count 66 10^3/uL (130-400); Red Blood Cell Count 3.24 10^6/uL (4.70-6.10); White Blood Cell Count 5.7 10^3/uL (4.8-10.8)
== END ==
LOC: HWLAB 13:53
PROVIDERS: ATTENDING PHYSICIAN Nurse Practitioner Primary Care; FAMILY PHYSICIAN Nurse Practitioner Family
DX: D69.6 Thrombocytopenia, unspecified (principal); D64.9 Anemia, unspecified; D61.89 Other specified aplastic anemias and other bone marrow failure syndromes
CPT/HCPCS: 36415; 85025

== ENCOUNTER 2024-04-10 12:21 | Emergency (ER) | payer MEDICARE, BC, SELFPAY ==
[2024-04-10 12:28] VITALS: BP 136/66
[2024-04-10 12:57] LABS: % Basophils 0.6 % (0-2); % Eosinophils 4.1 % (0-6); % Immature Granulocytes 0.3 % (0-0.5); % Lymphocytes 8.7 % (20.5-51.1); % Monocytes 6.8 % (1.7-9.3); % Neutrophils 79.5 % (42.2-75.2); Absolute Eosinophils 0.3 10^3/uL (0-0.7); Absolute Lymphocytes 0.6 10^3/uL (1.2-3.4); Absolute Monocytes 0.5 10^3/uL (0.1-0.6); Absolute Neutrophils 5.4 10^3/uL (1.4-6.5); Hematocrit 34.3 % (39.0-52.0); Mean Corp Hgb Conc. 32.1 g/dL (33.0-37.0); Mean Corpuscular Hgb 31.2 pg (27.0-31.0); Mean Corpuscular Volume 97.2 fL (80.0-94.0); Mean Platelet Volume 11.6 fL (7.4-10.4); Nucleated Red Blood Cells % 0 % (-); Platelet Count 66 10^3/uL (130-400); Red Blood Cell Count 3.53 10^6/uL (4.70-6.10); Red Cell Dist. Width 15.2 % (11.5-14.5); White Blood Cell Count 6.8 10^3/uL (4.8-10.8)
[2024-04-10 13:00] LABS: ALT (SGPT) 29 U/L (0-50); AST (SGOT) 35 U/L (17-59); Albumin 4.2 g/dl (3.5-5.0); Alkaline Phosphatase 147 U/L (38-126); Blood Urea Nitrogen 38 mg/dl (9-20); Calcium 9.6 mg/dl (8.4-10.2); Carbon Dioxide 28 mmol/L (22-30); Chloride 106 mmol/L (98-107); Glucose 128 mg/dl (70-99); Potassium 4.4 mmol/L (3.5-5.1); Sodium 145 mmol/L (135-145); Total Bilirubin 1.4 mg/dl (0.2-1.3); Total Protein 6.8 g/dl (6.3-8.2); eGFR 41.96
[2024-04-10 13:02] LABS: INR 2.15; PT 24.1 Sec (11.4-14.6)
--- NOTE | 2024-04-10 15:19 | ED.GENMED ---
History of Present Illness
General
Chief Complaint: Post Operative Problem(s)
Time Seen by Provider: 04/10/24 14:57
History of Present Illness
History of Present Illness:
83-year-old male with history of A-fib on Coumadin presenting to the emergency department for concern of bleeding from site where he had a biopsy. Patient had a bone marrow biopsy on 03/15. On 03/25, patient had bleeding from the site, had to come
to the ER twice, eventually requiring suturing at the area. Patient had the sutures removed a week ago. He woke up this morning in a pool of blood and noticed that the site was bleeding again. Patient had been taken off Coumadin, however is back
on the Coumadin. Denies chest pain, difficulty breathing, weakness, lightheadedness. He tried putting pressure on the area, however area still bleeding. Denies additional acute medical complaints
Past History
Past History
ED Past Medical History: Arrthythmia, CHF, HTN, Hypercholesterolemia, Renal failure, Other (celiac, barretts esophagus) and Other (AAA)
ED Past Surgical History: Orthopedic and Other
Social History
Tobacco: Non-smoker
Alcohol: None
Drug: None
Personal:
Living: with family
Phy Exam
Physical Exam
Physical Exam:
General: Well-appearing, no clinical signs of dehydration, nontoxic and in no acute distress
HEENT: protecting airway
Neck: appears supple
CV: Normal heart rate
Resp: No accessory muscle use, no increased work of breathing
Abd: No distention
Extremities: No deformities, no swelling, no erythema
Neuro: alert, no focal neurologic deficit
: deferred
Rectal: deferred
Psych: Normal affect
Skin: At the right lumbar musculature, area where prior biopsy had been obtained, blister with oozing of blood
Course
Orders/Labs/Results
Orders:
Orders
04/10/24 12:40
CMP [Comprehensive Metabolic Panel] Urgent
Complete Blood Count/With Diff Urgent
INR [Prothrombin Time] Urgent
Abnormal Lab Results
04/10/24
12:40
RBC 3.53 L 10^6/uL
(4.70-6.10)
Hgb 11.0 L g/dL
(13.0-18.0)
Hct 34.3 L %
(39.0-52.0)
MCV 97.2 H fL
(80.0-94.0)
MCH 31.2 H pg
(27.0-31.0)
MCHC 32.1 L g/dL
(33.0-37.0)
RDW 15.2 H %
(11.5-14.5)
Plt Count 66 L 10^3/uL
(130-400)
MPV 11.6 H fL
(7.4-10.4)
Absolute Lymphs (auto) 0.6 L 10^3/uL
(1.2-3.4)
Neutrophils % 79.5 H %
(42.2-75.2)
Lymphocytes % 8.7 L %
(20.5-51.1)
PT 24.1 H Sec
(11.4-14.6)
BUN 38 H mg/dl
(9-20)
Creatinine 1.6 H mg/dL
(0.7-1.3)
Glucose 128 H mg/dl
(70-99)
Total Bilirubin 1.4 H mg/dl
(0.2-1.3)
Alkaline Phosphatase 147 H U/L
(38-126)
04/10/24 12:40
04/10/24 12:40
Vital Signs
Initial and Last Documented VS:
Initial Vital Signs
Temp Pulse Resp BP Pulse Ox
97.8 F 71 18 136/66 100
04/10/24 12:28 04/10/24 12:28 04/10/24 12:28 04/10/24 12:28 04/10/24 12:28
Last Documented Vital Signs
Temp Pulse Resp BP Pulse Ox
97.8 F 74 18 134/72 96
04/10/24 12:28 04/10/24 16:00 04/10/24 16:00 04/10/24 16:00 04/10/24 16:00
Procedures
Laceration Closure
Right Back:
Status of Wound: clean
Size of Wound in cm: 1
Preparation: cleaned with saline
Anesthesia: 1% Lidocaine with epi
Type of Closure: single layer closure
Skin Closure Material: 3-0 nylon
Number of sutures: 4
MDM/Problems Addressed
MDM/Problems Addressed:
83-year-old male with history of A-fib on Coumadin presenting for evaluation of prior bone marrow biopsy site that is bleeding with history of bleeding in the past requiring suturing. Vital signs are normal.
On exam, patient resting comfortably, no acute distress. On review of EMR, patient had similar issue on March 25, requiring suturing to the area. Sutures were removed a week ago and bleeding started today. Will screen with laboratory analysis
and coags given Coumadin status. Will place a stitch in the area to tamponade bleeding, given recurrent issue.
16:15 - Labs show hemoglobin and platelets at baseline. INR is therapeutic. Stitches placed with subsequent hemostasis. Gelfoam placed over the area. Feel stable for discharge, however advise close follow-up with doctor for reassessment and to
leave sutures in a little bit longer this time to aid with hemostasis. Return precautions discussed and patient verbalized understanding
16:50 -bleeding remains controlled. Plan for discharge
*Critical Care Note
Total Time (30-74mins, 75-104mins- exclusive of procedures): Not Applicable
ED Attending Note
-
Portions of this chart may have been created with voice recognition software.� Occasional wrong word or��sound alike� substitutions may have occurred due to the inherent limitations of voice recognition software.
Discharge Plan
Departure
Patient Disposition: Home (Routine Discharge)
Date of Disposition: 04/10/24
Time of Disposition: 16:50
Patient with high blood pressure during this ER visit?: No
Condition: Good
Discharge Problem:
Encounter for evaluation of wound, Bleeding from wound
Instructions: Wound Care (DC), Bleeding After Surgery
Prescriptions:
No Action
metoprolol tartrate 100 MG tablet
50 mg PO BID
pantoprazole 40 MG tablet,delayed release (DR/EC)
40 mg PO DAILY
warfarin [Jantoven] 5 MG tablet
3 mg PO DAILY
Rx Instructions:
use as directed
docosahexaenoic acid-epa 1 CAP capsule
1 cap PO DAILY
calcium carbonate-vitamin D3 1 EACH tablet
1 ea PO BID
aspirin 81 MG tablet,chewable
81 mg PO QPM
High Potency Probiotic 1 CAP capsule
1 cap PO DAILY
multivitamin with folic acid [Tab-A-Wiley] 1 TABLET tablet
1 tab PO DAILY
vitamin B complex Tablet
1 tab PO QPM
magnesium 250 mg Tablet
250 mg PO QPM
atorvastatin [Lipitor] 40 mg Tablet
40 mg PO DAILY
cilostazol 100 mg Tablet
100 mg PO BID
bumetanide [Bumex] 2 mg Tablet
2 mg PO DAILY
amlodipine [Norvasc] 2.5 mg Tablet
2.5 mg PO DAILY
folic acid 1 mg Tablet
1 mg PO DAILY
solifenacin [Vesicare] 5 mg Tablet
5 mg PO DAILY
potassium chloride 20 mEq Tablet Extended Release
20 meq PO DAILY
polyethylene glycol 3350 [Miralax] 17 gram Powder In Packet
17 g PO DAILY PRN (Reason: constipation)
docusate sodium [Colace] 100 mg Capsule
100 mg PO DAILY PRN (Reason: constipation)
Referrals:
Markie Contreras CRNP [Family Provider] -
Activity Restrictions/Additional Instructions:
You were seen in the emergency department for concern of bleeding from your bone marrow biopsy site
You were found to have stable anemia and low platelets, at baseline. You had sutures placed in the wound, which stopped the bleeding. Please continue to monitor and return with any additional complications of bleeding
Please follow-up closely with your primary care physician.
Return to the emergency department for any worsening of your symptoms, or any development of chest pain, difficulty breathing, abdominal pain with persistent vomiting and inability to tolerate food or liquid by mouth (concern for dehydration),
weakness, headache or confusion, fever greater than 100.4, or any additional symptoms that are concerning to you.
Thank you for choosing [facility].
Interventions
Interventions:
*Risk Screen - Suicide Last Done: 04/10/24 17:00
*General Assessment Last Done: 04/10/24 17:00
*Neglect/Abuse Screening Last Done: 04/10/24 17:00
*Nursing Disposition Last Done: 04/10/24 17:00
ED-Skin Assessment Last Done: 04/10/24 16:00
Discharge Date and Time
Discharge Date/Time: 04/10/24 17:00
Print Language: SLOVENIAN
[2024-04-10 16:00] VITALS: BP 134/72
== END 2024-04-10 17:00 | disposition home or self-care (01) ==
LOC: EMR 12:21
PROVIDERS: Emergency Medicine; EMERGENCY PHYSICIAN Student in an Organized Health Care Education/Training Program; FAMILY PHYSICIAN Nurse Practitioner Family
DX: L76.22 Postprocedural hemorrhage of skin and subcutaneous tissue following other procedure (principal); I11.0 Hypertensive heart disease with heart failure; I50.9 Heart failure, unspecified; I48.91 Unspecified atrial fibrillation; E78.00 Pure hypercholesterolemia, unspecified; Z87.19 Personal history of other diseases of the digestive system; I71.40 Abdominal aortic aneurysm, without rupture, unspecified
CPT/HCPCS: 99283; 12001; 80053; 85025; 85610

== ENCOUNTER 2024-04-11 21:35 | Emergency (ER) | payer MEDICARE, BC, SELFPAY ==
[2024-04-11 21:37] VITALS: BP 141/68
--- NOTE | 2024-04-11 21:43 | ED.GENMED ---
ED Provider Triage
<Mo More PA-C - Last Filed: 04/11/24 21:46>
-
Patient seen by provider in Triage?: Seen in Triage
Attestation: A medical screening examination has been initiated by a qualified medical provider. Based on the assessment performed at this time, it has been determined that an emergent medical condition may exist and the patient has been informed
that further medical evaluation and possible additional diagnostic testing may be needed.
HPI: 83-year-old male sent for marrow biopsy from 1 month ago presenting back to the ER for reevaluation after a bone marrow biopsy site from 1 month ago started bleeding again. This is patient's fourth visit for same. Had labs done yesterday
which showed a hemoglobin of 11 and an INR of 2.1. Currently hemodynamically stable.
GENERAL: Alert , in no apparent distress
EYE: No visual abnormalities.
NECK: Trachea midline
ENT: No visible abnormalities.
LUNGS: No acute respiratory distress
NEUROLOGICAL: Alert and oriented
SKIN: Skin intact. No visible changes.
MUSCULOSKELETAL: Moving extremities normally
PSYCH: Normal and appropriate interaction.
This is a medical evaluation conducted in person to initiate diagnostic evaluation and provide initial therapeutics. Please see further documentation by the treating clinician.
History of Present Illness
<Mo More PA-C - Last Filed: 04/11/24 21:46>
General
Chief Complaint: Wound Check/Suture Removal
Time Seen by Provider: 04/12/24 00:34
<YAMILET Preciado - Last Filed: 04/12/24 06:02>
General
Source: patient, spouse and family
Exam Limitations: none
Nursing documentation reviewed up to this point in time: agreed with
History of Present Illness
History of Present Illness:
Pt is a 83M w/ PMH of TAA, , HTN, CKD stage 3b, HFpEF, COPD, celiac disease, and AFib with coumadin therapy who presents today after bleeding from a bone marrow biopsy site that was created about a month ago. He states he was here yesterday and had
sutures placed. He has been here 3x in the past month for this recurring problem. This evening, he noticed the chair he was sitting in was soaked in blood and his attempted to stop the bleeding. She was unsuccessful but did redress the wound
and pt was brought here. Labs done yesterday indicate that he is currently hemodynamically stable. He denies fever, chills, purulent drainage from the wound and back pain.
Past History
<Mo More PA-C - Last Filed: 04/11/24 21:46>
Past History
ED Past Medical History: Arrthythmia, CHF, HTN, Hypercholesterolemia, Renal failure, Other (celiac, barretts esophagus) and Other (AAA)
ED Past Surgical History: Orthopedic and Other
Social History
Tobacco: Non-smoker
Alcohol: None
Drug: None
Personal:
Living: with family
Review of Systems
<YAMILET Preciado - Last Filed: 04/12/24 06:02>
Review of Systems
Constitutional: Reports no symptoms
Respiratory: Reports no symptoms
Cardiac: Reports no symptoms
Hematologic/Lymphatic: Reports bleeding (bleeding from bone marrow biopsy site)
Phy Exam
<YAMILET Preciado - Last Filed: 04/12/24 06:02>
General Physical Exam
General Presentation: well appearing and no apparent distress
General age: appears stated age
General Skin: warm and dry
General Habitus: normal and elderly
General Mental: alert
General Hydration: appears well hydrated
Skin Exam
Skin Exam: other (L lower back site of prior bone marrow biopsy showing granuloma with continuous, oozing bleeding; tenderness to palpation of the area)
Course
<Mo More PA-C - Last Filed: 04/11/24 21:46>
Orders/Labs/Results
Orders:
Orders
04/12/24 02:02
Silver Nitrate Applicator 1 each .ROUTE .STK-MED ONE
04/12/24 02:06
Silver Nitrate Applicator 1 each .ROUTE .STK-MED ONE
04/12/24 02:48
Lidocaine/Epinephrine/Tetracai [Let Topical Anesthetic Gel] 3 ml TOPICAL NOW STA
04/12/24 02:49
Lidocaine/Epinephrine/Tetracai [Let Topical Anesthetic Gel] 3 ml .ROUTE .STK-MED ONE
Vital Signs
Initial and Last Documented VS:
Initial Vital Signs
Temp Pulse Resp BP Pulse Ox
98.0 F 64 17 141/68 97
04/11/24 21:37 04/11/24 21:37 04/11/24 21:37 04/11/24 21:37 04/11/24 21:37
Last Documented Vital Signs
Temp Pulse Resp BP Pulse Ox
98.0 F 73 18 142/70 95
04/11/24 21:37 04/12/24 02:08 04/12/24 02:08 04/12/24 02:08 04/12/24 02:08
<Na Bartholomew, STPA - Last Filed: 04/12/24 06:02>
Orders/Labs/Results
Orders:
Orders
04/12/24 02:02
Silver Nitrate Applicator 1 each .ROUTE .STK-MED ONE
04/12/24 02:06
Silver Nitrate Applicator 1 each .ROUTE .STK-MED ONE
04/12/24 02:48
Lidocaine/Epinephrine/Tetracai [Let Topical Anesthetic Gel] 3 ml TOPICAL NOW STA
04/12/24 02:49
Lidocaine/Epinephrine/Tetracai [Let Topical Anesthetic Gel] 3 ml .ROUTE .STK-MED ONE
Vital Signs
Initial and Last Documented VS:
Initial Vital Signs
Temp Pulse Resp BP Pulse Ox
98.0 F 64 17 141/68 97
04/11/24 21:37 04/11/24 21:37 04/11/24 21:37 04/11/24 21:37 04/11/24 21:37
Last Documented Vital Signs
Temp Pulse Resp BP Pulse Ox
98.0 F 73 18 142/70 95
04/11/24 21:37 04/12/24 02:08 04/12/24 02:08 04/12/24 02:08 04/12/24 02:08
<Marivel Espino DO - Last Filed: 04/12/24 07:19>
Orders/Labs/Results
Orders:
Orders
04/12/24 02:02
Silver Nitrate Applicator 1 each .ROUTE .STK-MED ONE
04/12/24 02:06
Silver Nitrate Applicator 1 each .ROUTE .STK-MED ONE
04/12/24 02:48
Lidocaine/Epinephrine/Tetracai [Let Topical Anesthetic Gel] 3 ml TOPICAL NOW STA
04/12/24 02:49
Lidocaine/Epinephrine/Tetracai [Let Topical Anesthetic Gel] 3 ml .ROUTE .STK-MED ONE
Vital Signs
Initial and Last Documented VS:
Initial Vital Signs
Temp Pulse Resp BP Pulse Ox
98.0 F 64 17 141/68 97
04/11/24 21:37 04/11/24 21:37 04/11/24 21:37 04/11/24 21:37 04/11/24 21:37
Last Documented Vital Signs
Temp Pulse Resp BP Pulse Ox
98.0 F 73 18 142/70 95
04/11/24 21:37 04/12/24 02:08 04/12/24 02:08 04/12/24 02:08 04/12/24 02:08
<YAMILET Preciado - Last Filed: 04/12/24 06:02>
*Critical Care Note
Total Time (30-74mins, 75-104mins- exclusive of procedures): Not Applicable
ED Attending Note
<Mo More PA-C - Last Filed: 04/11/24 21:46>
-
Portions of this chart may have been created with voice recognition software.� Occasional wrong word or��sound alike� substitutions may have occurred due to the inherent limitations of voice recognition software.
<Marivel Espino DO - Last Filed: 04/12/24 07:19>
ED Attending Note
Patient seen and examined by attending physician: Yes
I performed the substantive portion of visit, reviewed & personally made and approve the management plan that is documented in note by myself or ADÁN.: Yes
ED Attending Note:
This is an 83-year-old gentleman with history of A-fib, chronically maintained on Coumadin. History of thrombocytopenia who underwent sacral bone marrow biopsy March 15 of this year. He has had recurrent episodes of bleeding from bone marrow
biopsy site with 2 ED visits March 25. On the second visit required figure of 8 suture to sacral skin biopsy site with cessation of bleeding. The sutures were removed 1 week later and he did well until April 10 when bleeding recurred.
Initially responded to Gelfoam but with recurrent bleeding 2 sutures placed during ED visit April 10.
His INR has been therapeutic between 2 and 3. He did take his usual dose of Coumadin this evening and then shortly afterwards noticed spontaneous bleeding from bone marrow biopsy site.
He has not had a fever nor chills. He does admit to mild local tenderness to area as well as a soft palpable skin lump.
He denies dizziness or lightheadedness. No chest pain or coughing or shortness of breath.
Laboratory studies yesterday revealed mild anemia improving from March 30. Platelet count is 66,000, stable and unchanged.
PT/INR yesterday 2.15.
GENERAL: 83-year-old gentleman appears his stated age, bright and alert, pleasant, appears in no acute distress. Lying on his left side. and daughter accompanying.
EYE: anicteric
NECK: Supple, nontender, no meningismus, no significant adenopathy.
ENT: oral mucosa is moist. No rhinorrhea.
CARDIAC: Regular rate and rhythm. no murmur.
LUNGS: Clear breath sounds bilaterally, no acute respiratory distress, no wheezes/rales/rhonchi
ABDOMEN: Soft, nondistended, without focal tenderness, no r/g, no cvat. normoactive BS.
BACK: At mid superior sacral region is a 1 cm slightly raised dark granulomatous tissue formation with active oozing/trickle of blood from mid to distal pinpoint area of this granulomatous nodule. There is no soft tissue swelling, no erythema, no
ecchymosis nor subcutaneous hematoma. Mild local tenderness to palpation.
NEUROLOGICAL: Alert and oriented x3, no focal neuro deficits.
SKIN: Warm and dry, normal color, skin intact. No rash.
MUSCULOSKELETAL: No C/C/E. peripheral pulses are full and equal b/l. No palpable tenderness.
PSYCH: Normal and appropriate interaction.
Patient presents with recurrent focal bleeding from what appears to be granulomatous tissue formation at prior bone marrow biopsy site mid superior sacral region. This granulomatous tissue is moderately friable. There is 2 intact sutures which I
will leave alone. There is no evidence of subcutaneous nor deep bleeding/hematoma. No evidence of cellulitis nor infectious process.
Area has been locally anesthetized with 1% lidocaine with epinephrine. Local cautery with silver nitrate has been effective in stopping focal bleeding. Will continue to observe in the ED.
04/12/2024 0200 AM
Upon reevaluation initial area of bleeding remains dry. There is a tiny area superior to this that has scant intermittent bleeding that we will cauterize with silver nitrate.
04/12/2024 0319 AM
No significant recurrent bleeding.
2 small inflamed areas over superior aspect of the granuloma have been cauterized with silver nitrate. Silver nitrate cautery performed by PA student under my direct supervision.
Gelfoam dressing and Band-Aid applied.
Will discharge to home with recommendations patient hold his Coumadin for today, April 12. If no recurrent bleeding, he can resume Coumadin April 13.
Follow-up with PCP for recheck.
Return precautions discussed.
Discharge Plan
Departure
Patient Disposition: Home (Routine Discharge)
Date of Disposition: 04/12/24
Time of Disposition: 03:15
Patient with high blood pressure during this ER visit?: No
Discharge Problem:
granuloma formation with local bleeding
Instructions: Wound Care (DC)
Prescriptions:
No Action
metoprolol tartrate 100 MG tablet
50 mg PO BID
pantoprazole 40 MG tablet,delayed release (DR/EC)
40 mg PO DAILY
warfarin [Jantoven] 5 MG tablet
3 mg PO DAILY
Rx Instructions:
use as directed
docosahexaenoic acid-epa 1 CAP capsule
1 cap PO DAILY
calcium carbonate-vitamin D3 1 EACH tablet
1 ea PO BID
aspirin 81 MG tablet,chewable
81 mg PO QPM
High Potency Probiotic 1 CAP capsule
1 cap PO DAILY
multivitamin with folic acid [Tab-A-Wiley] 1 TABLET tablet
1 tab PO DAILY
vitamin B complex Tablet
1 tab PO QPM
magnesium 250 mg Tablet
250 mg PO QPM
atorvastatin [Lipitor] 40 mg Tablet
40 mg PO DAILY
cilostazol 100 mg Tablet
100 mg PO BID
bumetanide [Bumex] 2 mg Tablet
2 mg PO DAILY
amlodipine [Norvasc] 2.5 mg Tablet
2.5 mg PO DAILY
folic acid 1 mg Tablet
1 mg PO DAILY
solifenacin [Vesicare] 5 mg Tablet
5 mg PO DAILY
potassium chloride 20 mEq Tablet Extended Release
20 meq PO DAILY
polyethylene glycol 3350 [Miralax] 17 gram Powder In Packet
17 g PO DAILY PRN (Reason: constipation)
docusate sodium [Colace] 100 mg Capsule
100 mg PO DAILY PRN (Reason: constipation)
Referrals:
Markie Contreras CRNP [Family Provider] -
Activity Restrictions/Additional Instructions:
Hold your Coumadin for today, April 12. If there is no recurrent bleeding from sacral biopsy site you can resume Coumadin on April 13.
I recommend you keep current dressing in place over the next 3 days unless it gets wet or saturated with blood. If bleeding recurs, redress wound with Gelfoam, apply pressure over Gelfoam until bleeding subsides and then redressed with large
Band-Aid. If this is ineffective, prompt return to the ER for further evaluation.
Interventions
Interventions:
*Risk Screen - Suicide Last Done: 04/11/24 21:37
*General Assessment Last Done: 04/11/24 21:37
*Neglect/Abuse Screening Last Done: 04/11/24 21:37
*Nursing Disposition Last Done: 04/12/24 03:30
ED-Skin Assessment Last Done: 04/12/24 02:07
Discharge Date and Time
Discharge Date/Time: 04/12/24 03:30
Print Language: WELSH
[2024-04-12 02:08] VITALS: BP 142/70
== END 2024-04-12 03:30 | disposition home or self-care (01) ==
LOC: EMR 21:35
PROVIDERS: EMERGENCY PHYSICIAN Emergency Medicine; FAMILY PHYSICIAN Nurse Practitioner Family
DX: L92.8 Other granulomatous disorders of the skin and subcutaneous tissue (principal)
CPT/HCPCS: 99282

== ENCOUNTER 2024-04-14 01:48 | Emergency (ER) | payer MEDICARE, BC, SELFPAY ==
[2024-04-14 01:54] VITALS: BP 151/71
[2024-04-14 01:55] VITALS: BP 151/71
[2024-04-14 02:00] VITALS: BMI 25.3
--- NOTE | 2024-04-14 02:17 | ED.SKININJ ---
HPI-Injury
<YAMILET Preciado - Last Filed: 04/14/24 05:41>
General
Chief Complaint: Skin Problem
Source: patient and spouse
Exam Limitations: none
Time Seen by Provider: 04/14/24 02:17
Nursing documentation reviewed up to this point in time: agreed with
History of Present Illness-Injury
Initial Injury comments:
Pt is a 83M w/ PMH of TAA, , HTN, CKD stage 3b, HFpEF, COPD, celiac disease, and AFib with coumadin therapy who presents today after bleeding from a bone marrow biopsy site that was created about a month ago. He states he was here on Thursday and
Thursday and had the wound dressed. He has been here multiple times in the past month for this recurring problem. This evening, he noticed the chair he was sitting in was soaked in blood and his attempted to stop the bleeding with foam patches
given to her from discharge on Thursday. She was unsuccessful but did redress the wound and pt was brought here. Labs done on Thursday indicate that he is currently hemodynamically stable. He denies fever, chills, purulent drainage from the wound and
back pain.
Past History
<YAMILET Preciado - Last Filed: 04/14/24 05:41>
Past History
ED Past Medical History: Arrthythmia, CHF, HTN, Hypercholesterolemia, Renal failure, Other (celiac, barretts esophagus) and Other (AAA)
ED Past Surgical History: Orthopedic and Other
Social History
Tobacco: Non-smoker
Alcohol: None
Drug: None
Personal:
Living: with family
Review of Systems
<YAMILET Preciado - Last Filed: 04/14/24 05:41>
Review of Systems
Allergies reviewed?: Yes
Constitutional: Denies fever, fatigue or chills
Respiratory: Denies trouble breathing
Cardiac: Denies chest pain
ABD/GI: Denies abdominal pain, nausea or vomiting
Neurological: Denies dizzy or headache
Skin Exam
<YAMILET Preciado - Last Filed: 04/14/24 05:41>
Puncture Wound
Upper Sacrum:
Type of puncture wound: other (bone marrow biopsy done last month)
Age of puncture wound: days ago (bx on 03/15/24)
Any active bleeding?: significant bleeding (multiple bandages soaked)
Distal skin color and temperature: normal-warm & good color
Normal distal neurovascular exam: Yes
Phy Exam
<YAMILET Preciado - Last Filed: 04/14/24 05:41>
General Physical Exam
General Presentation: well appearing and no apparent distress
General age: appears stated age
General Skin: warm and dry
General Habitus: normal and elderly
General Mental: alert
General Hydration: appears well hydrated
Cardiovascular Exam
Cardiovascular Exam: other (pt with permanent AFib)
Pulmonary Exam
Pulmonary Exam: lungs clear and no respiratory distress
Neurological Exam
Neurological Exam: alert, oriented x3, no motor deficits, no sensory deficits and speech normal
Course
<YAMILET Preciado - Last Filed: 04/14/24 05:41>
Vital Signs
Initial and Last Documented VS:
Initial Vital Signs
BP Pulse Ox
151/71 97
04/14/24 01:54 04/14/24 01:54
Last Documented Vital Signs
Temp Pulse Resp BP Pulse Ox
97.6 F 74 16 127/56 95
04/14/24 01:55 04/14/24 01:55 04/14/24 01:55 04/14/24 04:00 04/14/24 04:00
<Marivel Espino DO - Last Filed: 04/14/24 04:10>
Vital Signs
Initial and Last Documented VS:
Initial Vital Signs
BP Pulse Ox
151/71 97
04/14/24 01:54 04/14/24 01:54
Last Documented Vital Signs
Temp Pulse Resp BP Pulse Ox
97.6 F 74 16 127/56 95
04/14/24 01:55 04/14/24 01:55 04/14/24 01:55 04/14/24 04:00 04/14/24 04:00
Procedures
<Marivel Espino DO - Last Filed: 04/14/24 04:10>
Laceration Closure
Upper Sacrum:
Status of Wound: clean
Size of Wound in cm: 0.4
Description of Wound Edges: macerated and other (chronic ulcer/puncture wound)
Preparation: cleaned with saline and cleaned with Betadine (Betadine sponge scrub and extensive normal saline irrigation.)
Anesthesia: 1% Lidocaine with epi and added Na Bicarb to local
Revision/Debridement: irrigate-direct pressure
Wound exploration: explored to base- no FB
Type of Closure: single layer closure (Figure 8 closure over chronic ulcer as well as additional suture along right lateral edge of wound to further secure focal friable tissue.)
Skin Closure Material: 3-0 prolene
Number of sutures: 3
<YAMILET Preciado - Last Filed: 04/14/24 05:41>
*Critical Care Note
Total Time (30-74mins, 75-104mins- exclusive of procedures): Not Applicable
ED Attending Note
<YAMILET Preciado - Last Filed: 04/14/24 05:41>
-
Portions of this chart may have been created with voice recognition software.� Occasional wrong word or��sound alike� substitutions may have occurred due to the inherent limitations of voice recognition software.
<Marivel Espino DO - Last Filed: 04/14/24 04:10>
ED Attending Note
Patient seen and examined by attending physician: Yes
I performed the substantive portion of visit, reviewed & personally made and approve the management plan that is documented in note by myself or ADÁN.: Yes
ED Attending Note:
This is an 83-year-old gentleman with history of A-fib, chronically maintained on Coumadin. History of chronic thrombocytopenia who underwent sacral bone marrow biopsy March 15 of this year. He has had recurrent episodes of bleeding from bone
marrow biopsy site with 2 ED visits March 25. On the second visit required a figure 8 suture to sacral skin biopsy site with cessation of bleeding. Sutures were removed 1 week later and he did well until April 10 when bleeding recurred.
Initially responded to Gelfoam but with recurrent bleeding to suture placed during the ED visit April 10.
He then returned to this ED the following evening, April 11 where recurrent bleeding was noted and exam notable for a focal granulation tissue formation at sacral biopsy site. This granulomatous tissue was quite friable with intermittent bleeding
at various sites of the granulation tissue.
He did well with local silver nitrate cautery to this granulation tissue and was discharged to home with topical Gelfoam and Band-Aid.
He was recommended to hold his Coumadin for 1 day and then resume yesterday, April 13.
He had noticed very mild oozing of blood sporadically from the area but tonight increased bleeding that has been persistent, unrelieved with topical Gelfoam, unrelieved with bleed stop.
He has had no dizziness nor lightheadedness. No fever nor chills.
Previous labs note very mild but stable thrombocytopenia. Mild but stable anemia. INR 2.1.
GENERAL: Alert , in no apparent distress
NECK: Supple, nontender
ENT: oral mucosa is moist.
CARDIAC: Regular rate and rhythm. no murmur.
LUNGS: Clear breath sounds bilaterally, no acute respiratory distress, no wheezes/rales/rhonchi
ABDOMEN: Soft, nondistended, without focal tenderness
NEUROLOGICAL: Alert and oriented x3, no focal neuro deficits.
SKIN: Warm and dry, normal color, no rash. At the superior sacrum is a 1 cm firm reddish nodule with mild bleeding from beneath this nodule. Upon further evaluation this nodule readily sloughs off and nodule was noted to have 2 intact sutures.
After removal of the skin nodule there is 2 to 3 mm chronic ulcer/puncture wound with mildly friable thickened surrounding skin. There is scant bleeding from this central ulcer. Bleeding promptly resolves with local pressure and with local 1%
lidocaine with epinephrine injected into the skin. There is no surrounding erythema. No soft tissue swelling, no ecchymosis nor hematoma.
MUSCULOSKELETAL: No C/C/E. peripheral pulses are full and equal b/l. No palpable tenderness.
PSYCH: Normal and appropriate interaction.
Patient presents with recurrent bleeding from bone marrow puncture site and appeared to have a traumatic granuloma formation. Granuloma has now sloughed off with residual 3 mm ulceration with mild bleeding from ulceration site. There is no
evidence of deep tissue bleeding, no hematoma.
No evidence of focal infection.
He remains hemodynamically stable.
Due to recurrent episodes of bleeding, chronically maintained on Coumadin we will plan to suture this chronic ulcer closed after extensive irrigation and thorough cleansing with Betadine scrub.
Due to chronic nature of wound and repeated local instrumentation, suturing will place on a short course of Keflex for infection prevention.
Recommend follow-up with oncologist and patient will be referred to dermatology as well. Concern for recurrent granulation tissue formation, concern for recurrent bleeding, thus recommend dermatology evaluation.
Patient has follow-up appointment with PCP scheduled for the . If no further bleeding no issues sutures can be removed at that time.
Discharge Plan
Departure
Patient Disposition: Home (Routine Discharge)
Date of Disposition: 04/14/24
Time of Disposition: 04:00
Patient with high blood pressure during this ER visit?: No
Condition: Good
Discharge Problem:
Recurrent bleeding from biopsy site
Instructions: Stitches and nettie
Prescriptions:
New
cephalexin 500 mg capsule
500 mg PO BID 7 Days Qty: 14 0RF
No Action
metoprolol tartrate 100 MG tablet
50 mg PO BID
pantoprazole 40 MG tablet,delayed release (DR/EC)
40 mg PO DAILY
warfarin [Jantoven] 5 MG tablet
3 mg PO DAILY
Rx Instructions:
use as directed
docosahexaenoic acid-epa 1 CAP capsule
1 cap PO DAILY
calcium carbonate-vitamin D3 1 EACH tablet
1 ea PO BID
aspirin 81 MG tablet,chewable
81 mg PO QPM
High Potency Probiotic 1 CAP capsule
1 cap PO DAILY
multivitamin with folic acid [Tab-A-Wiley] 1 TABLET tablet
1 tab PO DAILY
vitamin B complex Tablet
1 tab PO QPM
magnesium 250 mg Tablet
250 mg PO QPM
atorvastatin [Lipitor] 40 mg Tablet
40 mg PO DAILY
cilostazol 100 mg Tablet
100 mg PO BID
bumetanide [Bumex] 2 mg Tablet
2 mg PO DAILY
amlodipine [Norvasc] 2.5 mg Tablet
2.5 mg PO DAILY
folic acid 1 mg Tablet
1 mg PO DAILY
solifenacin [Vesicare] 5 mg Tablet
5 mg PO DAILY
potassium chloride 20 mEq Tablet Extended Release
20 meq PO DAILY
polyethylene glycol 3350 [Miralax] 17 gram Powder In Packet
17 g PO DAILY PRN (Reason: constipation)
docusate sodium [Colace] 100 mg Capsule
100 mg PO DAILY PRN (Reason: constipation)
Referrals:
Markie Contreras CRNP [Family Provider] - Keep scheduled appt
Nickie Hernandez MD [Consulting Staff] - Call in 1-3 days for appt
Interventions
Interventions:
*Risk Screen - Suicide Last Done: 04/14/24 02:02
*General Assessment Last Done: 04/14/24 02:02
*Neglect/Abuse Screening Last Done: 04/14/24 02:02
ED- Fall Risk Assessment Last Done: 04/14/24 02:02
*ED COVID-19 Vaccine History Last Done: 04/14/24 02:02
*Nursing Disposition Last Done: 04/14/24 04:59
ED-Skin Assessment Last Done: 04/14/24 02:02
Discharge Date and Time
Discharge Date/Time: 04/14/24 04:45
Print Language: GERMAN
[2024-04-14 03:00] VITALS: BP 135/56
[2024-04-14 04:00] VITALS: BP 127/56
== END 2024-04-14 04:45 | disposition home or self-care (01) ==
LOC: EMR 01:48
PROVIDERS: EMERGENCY PHYSICIAN Emergency Medicine; FAMILY PHYSICIAN Nurse Practitioner Family
DX: L76.22 Postprocedural hemorrhage of skin and subcutaneous tissue following other procedure (principal); Y84.8 Other medical procedures as the cause of abnormal reaction of the patient, or of later complication, without mention of misadventure at the time of the procedure; I13.0 Hypertensive heart and chronic kidney disease with heart failure and stage 1 through stage 4 chronic kidney disease, or unspecified chronic kidney disease; I50.32 Chronic diastolic (congestive) heart failure; N18.32 Chronic kidney disease, stage 3b; E78.00 Pure hypercholesterolemia, unspecified; I48.91 Unspecified atrial fibrillation; J44.9 Chronic obstructive pulmonary disease, unspecified; Z79.01 Long term (current) use of anticoagulants
CPT/HCPCS: 12001; 99282

== ENCOUNTER → 2024-05-27 09:56 | Outpatient (REF) | payer MEDICARE, BC, SELFPAY ==
[2024-05-27 12:36] LABS: Blood Urea Nitrogen 29 mg/dl (9-20); Calcium 9.5 mg/dl (8.4-10.2); Carbon Dioxide 31 mmol/L (22-30); Chloride 104 mmol/L (98-107); Glucose 90 mg/dl (70-99); Potassium 3.9 mmol/L (3.5-5.1); Sodium 143 mmol/L (135-145); eGFR 48.95
[2024-05-27 12:52] LABS: % Basophils 0.6 % (0-2); % Immature Granulocytes 0.2 % (0-0.5); % Lymphocytes 12.8 % (20.5-51.1); % Monocytes 8.6 % (1.7-9.3); % Neutrophils 73.8 % (42.2-75.2); Absolute Eosinophils 0.2 10^3/uL (0-0.7); Absolute Lymphocytes 0.7 10^3/uL (1.2-3.4); Absolute Monocytes 0.5 10^3/uL (0.1-0.6); Absolute Neutrophils 3.9 10^3/uL (1.4-6.5); Hematocrit 32.5 % (39.0-52.0); Hemoglobin 10.2 g/dL (13.0-18.0); Mean Corp Hgb Conc. 31.4 g/dL (33.0-37.0); Mean Corpuscular Hgb 30.1 pg (27.0-31.0); Mean Corpuscular Volume 95.9 fL (80.0-94.0); Mean Platelet Volume 10.8 fL (7.4-10.4); Nucleated Red Blood Cells % 0 % (-); Platelet Count 69 10^3/uL (130-400); Red Blood Cell Count 3.39 10^6/uL (4.70-6.10); Red Cell Dist. Width 14.3 % (11.5-14.5); White Blood Cell Count 5.3 10^3/uL (4.8-10.8)
== END ==
LOC: HWLAB 09:56
PROVIDERS: ATTENDING PHYSICIAN Surgery Vascular Surgery; FAMILY PHYSICIAN Nurse Practitioner Family
DX: I71.60 Thoracoabdominal aortic aneurysm, without rupture, unspecified (principal)
CPT/HCPCS: 36415; 80048; 85025

== ENCOUNTER → 2024-06-17 12:42 | Outpatient (REF) | payer MEDICARE, BC, SELFPAY ==
[2024-06-17 16:02] LABS: Urine Albumin 3+ (Neg - Trace); Urine Bilirubin Negative (Negative); Urine Character Clear (Clear); Urine Color Yellow; Urine Glucose Negative (Negative); Urine Ketone Negative (Negative); Urine Leukocyte Negative (Negative); Urine Nitrite Negative (Negative); Urine Occult Blood 3+ (Negative); Urine Urobilinogen Negative (Neg - 1+)
[2024-06-17 16:10] LABS: Protein/creatinine Ratio 5.3; Urine Protein 193 mg/dl
[2024-06-17 16:52] LABS: Urine Squamous Cell 0-2 /LPF (Few)
== END ==
LOC: HWLAB 12:42
PROVIDERS: ATTENDING PHYSICIAN Internal Medicine; FAMILY PHYSICIAN Nurse Practitioner Family
DX: I10 Essential (primary) hypertension (principal)
CPT/HCPCS: 81003; 81015; 82570; 84156

== ENCOUNTER → 2024-07-15 07:55 | Outpatient (REF) | payer MEDICARE, BC, SELFPAY ==
[2024-07-15 10:32] LABS: TSH 2.82 uIU/ml (0.47-4.68)
== END ==
LOC: HWRAD 07:55
PROVIDERS: ATTENDING PHYSICIAN Internal Medicine Endocrinology, Diabetes & Metabolism; FAMILY PHYSICIAN Nurse Practitioner Family
DX: E04.2 Nontoxic multinodular goiter (principal)
CPT/HCPCS: 36415; 76536; 84443

== ENCOUNTER → 2024-07-20 13:11 | Outpatient (REF) | payer MEDICARE, BC, SELFPAY ==
[2024-07-20 16:41] LABS: Albumin 3.7 g/dl (3.5-5.0); Blood Urea Nitrogen 32 mg/dl (9-20); Calcium 9.3 mg/dl (8.4-10.2); Carbon Dioxide 26 mmol/L (22-30); Chloride 103 mmol/L (98-107); Glucose 109 mg/dl (70-99); Phosphorus 3.2 mg/dl (2.5-4.5); Sodium 139 mmol/L (135-145); eGFR 45.06
[2024-07-20 23:34] LABS: Complement C3 109 mg/dl (88-165)
[2024-07-21 18:25] LABS: Hepatitis C Antibody Negative (Negative)
[2024-07-23 08:09] LABS: ANA, IgG Reflex to HEp-2 None Detected (None Detected)
== END ==
LOC: HWLAB 13:11
PROVIDERS: ATTENDING PHYSICIAN Internal Medicine; FAMILY PHYSICIAN Nurse Practitioner Family
DX: N18.32 Chronic kidney disease, stage 3b (principal); R80.9 Proteinuria, unspecified; I10 Essential (primary) hypertension
CPT/HCPCS: 36415; 80069; 83516; 83521; 84155; 84156; 84165; 86038; 86160; 86255; 86335; 86803

== ENCOUNTER → 2024-07-22 12:20 | Outpatient (REF) | payer MEDICARE, BC, SELFPAY ==
[2024-07-22 16:53] LABS: 24 Hour Urine Total Volume 1400 ml
[2024-07-22 17:12] LABS: 24 Hour Urine Creatinine 0.994 gm/day (1.0-2.0); Urine Protein 176 mg/dl (0-12)
== END ==
LOC: HWLAB 12:20
PROVIDERS: ATTENDING PHYSICIAN Internal Medicine; FAMILY PHYSICIAN Nurse Practitioner Family
DX: N18.32 Chronic kidney disease, stage 3b (principal); R80.9 Proteinuria, unspecified
CPT/HCPCS: 81050; 82570; 84156

== ENCOUNTER → 2024-09-15 12:18 | Outpatient (REF) | payer MEDICARE, BC, SELFPAY ==
[2024-09-15 16:50] LABS: Albumin 3.4 g/dl (3.5-5.0); Blood Urea Nitrogen 36 mg/dl (9-20); Carbon Dioxide 30 mmol/L (22-30); Chloride 105 mmol/L (98-107); Glucose 135 mg/dl (70-99); Potassium 3.9 mmol/L (3.5-5.1); Sodium 143 mmol/L (135-145)
[2024-09-15 16:51] LABS: Urine Albumin 3+ (Neg - Trace); Urine Bilirubin Negative (Negative); Urine Character Clear (Clear); Urine Color Yellow; Urine Glucose Negative (Negative); Urine Ketone Negative (Negative); Urine Leukocyte Negative (Negative); Urine Nitrite Negative (Negative); Urine Occult Blood 2+ (Negative); Urine Urobilinogen Negative (Neg - 1+)
[2024-09-15 17:06] LABS: Urine Bacteria Few (Negative); Urine Hyaline Cast >15 /LPF (0-2); Urine Mucus Few; Urine White Cell 0-2 /HPF (0-5)
[2024-09-15 17:16] LABS: Protein/creatinine Ratio 2.1; Urine Protein 179 mg/dl
== END ==
LOC: HWLAB 12:18
PROVIDERS: ATTENDING PHYSICIAN Internal Medicine; FAMILY PHYSICIAN Nurse Practitioner Family
DX: N18.32 Chronic kidney disease, stage 3b (principal); R80.9 Proteinuria, unspecified
CPT/HCPCS: 36415; 80069; 81003; 81015; 82570; 84156

== ENCOUNTER → 2024-11-14 13:23 | Outpatient (REF) | payer MEDICARE, BC, SELFPAY ==
[2024-11-14 16:11] LABS: Hematocrit 34.2 % (39.0-52.0); Hemoglobin 11.2 g/dL (13.0-18.0); Mean Corp Hgb Conc. 32.7 g/dL (33.0-37.0); Mean Corpuscular Volume 94.0 fL (80.0-94.0); Nucleated Red Blood Cells % 0 % (-); Platelet Count 68 10^3/uL (130-400); Red Cell Dist. Width 14.4 % (11.5-14.5)
[2024-11-14 16:16] LABS: Albumin 3.9 g/dl (3.5-5.0); Blood Urea Nitrogen 37 mg/dl (9-20); Calcium 9.2 mg/dl (8.4-10.2); Carbon Dioxide 26 mmol/L (22-30); Chloride 107 mmol/L (98-107); Glucose 83 mg/dl (70-99); Potassium 4.1 mmol/L (3.5-5.1); Sodium 140 mmol/L (135-145); eGFR 41.70
== END ==
LOC: HWLAB 13:23
PROVIDERS: ATTENDING PHYSICIAN Internal Medicine Hematology & Oncology; FAMILY PHYSICIAN Nurse Practitioner Family; REFERRING PHYSICIAN Internal Medicine
DX: I10 Essential (primary) hypertension (principal); N18.32 Chronic kidney disease, stage 3b; R80.9 Proteinuria, unspecified; D69.6 Thrombocytopenia, unspecified; D64.9 Anemia, unspecified; D61.818 Other pancytopenia
CPT/HCPCS: 36415; 80069; 82570; 84156; 85025

== ENCOUNTER → 2024-12-30 09:47 | Outpatient (REF) | payer MEDICARE, BC, SELFPAY ==
[2024-12-30 12:35] LABS: Hematocrit 34.7 % (39.0-52.0); Hemoglobin 11.7 g/dL (13.0-18.0); Mean Corp Hgb Conc. 33.7 g/dL (33.0-37.0); Mean Corpuscular Volume 90.8 fL (80.0-94.0); Nucleated Red Blood Cells % 0 % (-); Red Cell Dist. Width 14.3 % (11.5-14.5)
[2024-12-30 12:40] LABS: Fibrinogen 201 MG/DL (199-459)
[2024-12-30 12:47] LABS: Platelet Count 62 10^3/uL (130-400)
[2024-12-30 14:27] LABS: Albumin 4.3 g/dl (3.5-5.0); Blood Urea Nitrogen 45 mg/dl (9-20); Calcium 9.9 mg/dl (8.4-10.2); Carbon Dioxide 26 mmol/L (22-30); Chloride 107 mmol/L (98-107); Glucose 95 mg/dl (70-99); HDL Cholesterol 34 mg/dl; LDL Cholesterol, Calculated 43 mg/dl; Potassium 4.6 mmol/L (3.5-5.1); Sodium 142 mmol/L (135-145); Very Low Density Lipoprotein 14 mg/dl (0-30); eGFR 30.09
== END ==
LOC: HWLAB 09:47
PROVIDERS: ATTENDING PHYSICIAN Internal Medicine; FAMILY PHYSICIAN Nurse Practitioner Family; OTHER PHYSICIAN Student in an Organized Health Care Education/Training Program; REFERRING PHYSICIAN Internal Medicine Hematology & Oncology
DX: I10 Essential (primary) hypertension (principal); N18.32 Chronic kidney disease, stage 3b; D69.6 Thrombocytopenia, unspecified; D64.9 Anemia, unspecified; D61.818 Other pancytopenia; D63.1 Anemia in chronic kidney disease; I42.9 Cardiomyopathy, unspecified
CPT/HCPCS: 36415; 80061; 80069; 82570; 84156; 85025; 85384

== ENCOUNTER → 2025-01-26 11:37 | Outpatient (REF) | payer MEDICARE, BC, SELFPAY ==
[2025-01-26 17:10] LABS: Albumin 3.9 g/dl (3.5-5.0); Blood Urea Nitrogen 42 mg/dl (9-20); Calcium 9.5 mg/dl (8.4-10.2); Carbon Dioxide 27 mmol/L (22-30); Chloride 106 mmol/L (98-107); Glucose 153 mg/dl (70-99); Potassium 4.0 mmol/L (3.5-5.1); Sodium 139 mmol/L (135-145); eGFR 31.90
[2025-01-26 17:21] LABS: Urine Character Clear (Clear)
[2025-01-26 19:51] LABS: Urine White Cell 0-2 /HPF (0-5)
== END ==
LOC: HWLAB 11:37
PROVIDERS: ATTENDING PHYSICIAN Internal Medicine; FAMILY PHYSICIAN Nurse Practitioner Family
DX: N17.9 Acute kidney failure, unspecified (principal)
CPT/HCPCS: 36415; 80069; 81003; 81015; 82570; 84156

== ENCOUNTER → 2025-02-09 09:46 | Outpatient (REF) | payer MEDICARE, BC, SELFPAY ==
[2025-02-09 13:39] LABS: Vitamin B12 855 pg/ml (239-931)
== END ==
LOC: HWLAB 09:46
PROVIDERS: ATTENDING PHYSICIAN Nurse Practitioner Family
DX: R53.83 Other fatigue (principal); K90.0 Celiac disease
CPT/HCPCS: 36415; 82607; 84443

== ENCOUNTER → 2025-03-03 12:39 | Outpatient (REF) | payer MEDICARE, BC, SELFPAY ==
[2025-03-03 15:38] LABS: Albumin 4.1 g/dl (3.5-5.0); Blood Urea Nitrogen 34 mg/dl (9-20); Calcium 9.6 mg/dl (8.4-10.2); Carbon Dioxide 30 mmol/L (22-30); Chloride 107 mmol/L (98-107); Glucose 88 mg/dl (70-99); Potassium 4.5 mmol/L (3.5-5.1); Sodium 143 mmol/L (135-145); eGFR 36.21
== END ==
LOC: HWLAB 12:39
PROVIDERS: ATTENDING PHYSICIAN Internal Medicine; FAMILY PHYSICIAN Nurse Practitioner Family
DX: I10 Essential (primary) hypertension (principal); N17.9 Acute kidney failure, unspecified; R80.9 Proteinuria, unspecified
CPT/HCPCS: 36415; 80069; 82570; 84156